=== PATIENT | female | born 1980 | race Two or more races ===

== ENCOUNTER 2018-05-04 17:59 | Inpatient (IN) | payer BC ==
[2018-05-04] MEDS: ONDANSETRON 4 MG INJ IV (21:21)
[2018-05-04] MEDS: morphine 4 MG/ML VIAL IV (21:21)
[2018-05-04] MEDS: SOD CHLORIDE 0.9% 1,000 ML IV (21:22)
[2018-05-04 21:27] LABS: ADD MAN DIFF? NO
[2018-05-04 21:39] LABS: ADD UMIC NO; UR ASCORBIC ACID NEGATIVE (NEGATIVE); UR BILIRUBIN (Dip) NEGATIVE (NEGATIVE); UR BLOOD (Dip) NEGATIVE (NEGATIVE); UR CLARITY CLEAR (CLEAR); UR COLOR YELLOW (YELLOW); UR GLUCOSE (Dip) NEGATIVE (NEGATIVE); UR KETONES (Dip) NEGATIVE (NEGATIVE); UR LEUKOCYTE ESTERASE (Dip) NEGATIVE Leu/ul (NEGATIVE); UR NITRITE (Dip) NEGATIVE (NEGATIVE); UR SPECIFIC GRAVITY (Dip) 1.015 (1.003-1.030); UR TOTAL PROTEIN (Dip) NEGATIVE (NEGATIVE); UR UROBILINOGEN (Dip) NEGATIVE (NEGATIVE)
[2018-05-04 21:53] LABS: ALANINE AMINOTRANSFERASE 29 IU/L (13-69); ALBUMIN 4.5 g/dl (3.3-4.9); ALBUMIN/GLOBULIN RATIO 1.36; ALKALINE PHOSPHATASE 92 IU/L (42-121); ANION GAP 12 (8-16); ASPARTATE AMINO TRANSFERASE 27 IU/L (15-46); BILIRUBIN,INDIRECT 0.6 mg/dl (0-1.1); BILIRUBIN,TOTAL 0.6 mg/dl (0.2-1.3); BLOOD UREA NITROGEN 16 mg/dl (7-20); CALCIUM 9.4 mg/dl (8.4-10.2); CARBON DIOXIDE 29 mmol/L (21-31); CHLORIDE 105 mmol/L (97-110); GLUCOSE 88 mg/dl (70-220); LIPASE 38 U/L (23-300); SODIUM 142 mmol/L (135-144); TOTAL PROTEIN 7.8 g/dl (6.1-8.1)
[2018-05-04 22:04] LABS: WHITE BLOOD COUNT 10.5 10^3/ul (4.8-10.8)
[2018-05-04 22:04] LABS: BASOPHIL # 0.1 10^3/ul (0.0-0.1); BASOPHILS % 0.8 % (0.0-2.0); EOSINOPHILS # 0.1 10^3/ul (0.0-0.5); HEMATOCRIT 41.3 % (37.0-47.0); HEMOGLOBIN 13.4 g/dl (12.0-16.0); LYMPHOCYTES # 2.7 10^3/ul (0.8-2.9); LYMPHOCYTES % 26.1 % (15.0-51.0); MEAN CORPUSCULAR HEMOGLOBIN 30.2 pg (29.0-33.0); MEAN CORPUSCULAR HGB CONC 32.4 g/dl (32.0-37.0); MEAN CORPUSCULAR VOLUME 93.2 fl (82.0-101.0); MONOCYTE # 0.7 10^3/ul (0.3-0.9); NEUTROPHIL # 6.8 10^3/ul (1.6-7.5); NEUTROPHILS % 64.8 % (39.0-77.0); PLATELET COUNT 218 10^3/UL (140-415); RED BLOOD COUNT 4.43 10^6/ul (4.20-5.40); RED CELL DISTRIBUTION WIDTH 12.5 % (11.5-14.5)
[2018-05-05] MEDS ORDERED: morphine 2 MG INJ IV (01:00)
[2018-05-05] MEDS ORDERED: ACETAMINOPHEN 325 MG TAB PO (01:00)
[2018-05-05] MEDS ORDERED: NACL 0.9% 3 ML SYG IV (01:00)
[2018-05-05] MEDS ORDERED: ONDANSETRON 4 MG INJ IV (01:00)
[2018-05-05] MEDS: CEFAZOLIN 1 GM/50 ML (PMX) 50 ML IVPB ×4 (01:34→17:16)
[2018-05-05] MEDS: SOD CHLORIDE 0.9% 1,000 ML IV ×2 (01:36→12:33)
== END 2018-05-05 19:06 | disposition home or self-care (01) | DRG 395 ==
LOC: FTE 17:59 → PP2 05-05 00:27
DX: K42.0 Umbilical hernia with obstruction, without gangrene (principal)
CPT/HCPCS: 36415; 74177; 80053; 81003; 81025; 83690; 85025; 96361; 96374; 96375; 99285-25